=== PATIENT | female | born 1995 | race Caucasian/White ===

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

== ENCOUNTER 2017-01-29 11:17 | Observation (INO) | payer OTHER ==
[~2017-01-29] VITALS: Ht 167.6 cm; Wt 57.0 kg
[~2017-01-29 11:17] MED LIST: CNC/27 PO; LURA40TA PO; PRAZ1CAP28 PO; SERT-234 PO
[2017-01-29] MEDS ORDERED: ONDANSETRON INJ 2 MG/ML 2 ML VIAL ONE (11:56)
[2017-01-29 12:18] LABS: BASO % 0.1 %; BASO ABS # 0.01 K/uL (0-0.2); COMPLETE YES; EOS % 0.8 %; HEMATOCRIT 38.4 % (37-47); IG% 0.3 %; LYMPH % 13.2 %; LYMPH ABS # 1.22 K/uL (1.2-3.4); MEAN CELL VOLUME 84.2 fL (80-100); MEAN CORPUSCULAR HEMOGLOBIN 28.9 pg (25-34); MEAN CORPUSCULAR HGB CONC 34.4 g/dl (32-36); MEAN PLATELET VOLUME 9.8 fL (7.4-10.4); MONO % 13.6 %; PLATELET COUNT 265 K/uL (130-400); RED BLOOD COUNT 4.56 M/uL (4.2-5.4); WHITE BLOOD COUNT 9.26 K/uL (4.8-10.8)
[2017-01-29 12:19] LABS: URINE APPEARANCE CLEAR (CLEAR); URINE BILIRUBIN NEG (NEG); URINE COLOR DK YELLOW; URINE EPITHELIAL CELL AUTO >30 /lpf (0-5); URINE NITRITE NEG (NEG); URINE PH 5.5 (4.5-7.5); URINE SPECIFIC GRAVITY 1.026 (1.000-1.030); UROBILINOGEN NEG (NEG); ZZUR CULT IF INDIC CLEAN CATCH YES
[2017-01-29 12:21] LABS: MANUAL MICROSCOPIC REQUIRED? NO; REVIEW REQ? YES
[2017-01-29 12:31] LABS: INR 1.1 (0.9-1.1); PARTIAL THROMBOPLASTIN RATIO 1.2; PROTHROMBIN TIME (PATIENT) 11.3 SECONDS (9.0-12.0)
[2017-01-29 12:32] LABS: URINE MUCUS PRESENT (NONE PRSENT)
[2017-01-29 12:38] LABS: ALT/SGPT 23 U/L (12-78); AST/SGOT 16 U/L (15-37); BLOOD UREA NITROGEN 9 mg/dl (7-18); BUN/CREATININE RATIO 13.5 (10-20); CALCIUM 8.8 mg/dl (8.5-10.1); CARBON DIOXIDE 27 mmol/L (21-32); CHLORIDE 100 mmol/L (98-107); CREATININE 0.65 mg/dl (0.60-1.20); GLUCOSE 86 mg/dl (70-99); MAGNESIUM 2.2 mg/dl (1.8-2.4); POTASSIUM 3.1 mmol/L (3.5-5.1); SODIUM 135 mmol/L (136-145)
[2017-01-29 12:43] LABS: ALKALINE PHOSPHATASE 93 U/L (45-117)
--- NOTE | 2017-01-29 12:54 | EMERGENCY ROOM VISIT NOTE ---
History First contact with patient: 11:39 Chief Complaint: FLANK PAIN Stated Complaint: VOMITING, PAIN, MIGRAINE Nursing Triage Summary: pt to the ED from [facility] with a kidney infection that is not getting better pain on left flank/side area concern for pyelo see orange sheet History of Present Illness The patient is a 21 year old female who presents to the Emergency Room via private vehicle referred by [facility] with complaints of "vomiting, pain, migraine". The patient states that Wednesday she developed decreased appetite, and felt as though she was developing a headache. Mother then she developed excruciating left-sided abdominal pain. She did not eat much Wednesday, and was seen by [facility] on Wednesday. They obtained a urine specimen, and identify a urinary tract infection, likely pyelonephritis. She is put on ciprofloxacin at that time. She's been vomiting since that time, and also had Zofran this morning prior to arrival. She notes minimal pain, but does have a headache. She notes minimal vaginal discharge, but no pain. There is associated urinary frequency, and chills. Review of Systems A complete 10-point Review of Systems was discussed with the patient, with pertinent positives and negatives listed in the History of Present Illness. All remaining Review of Systems questions can be considered negative unless otherwise specified. Past Medical/Surgical History Medical Problems: (1) Pyelonephritis Family History Diabetes, heart disease, high blood pressure. Social History Smoking Status: Never Smoker Patient is currently a [employer] student. Current/Historical Medications Scheduled Lurasidone Hcl (Latuda), 40 MG PO DAILY Methylphenidate Hcl (Concerta), 27 MG PO QAM Prazosin Hcl (Prazosin), 1 MG PO HS Sertraline (Zoloft), 100 MG PO DAILY Physical Exam Vital Signs Date Time Temp Pulse Resp B/P (MAP) Pulse Ox O2 Delivery O2 Flow Rate FiO2 01/29/17 16:14 97 01/29/17 16:04 82 16 106/64 97 Room Air 01/29/17 14:40 88 16 115/73 99 Room Air 01/29/17 13:04 89 18 122/83 100 Room Air 01/29/17 12:14 93 01/29/17 12:08 99 Room Air 01/29/17 11:18 36.7 86 16 111/73 98 Physical Exam VITAL SIGNS - Vital signs and nursing notes were reviewed. Stable. GENERAL -21-year-old female appearing her stated age who is in no acute distress. Communicates well with provider and answers questions appropriately. SKIN - Without rashes. No petechial or meningeal rash. HEAD - NC/AT. EYES - Sclera anicteric. EARS - No deformities of external structures noted on gross examination bilaterally. NOSE - Midline and without cyanosis. No epistaxis or purulent drainage noted. Septum midline without deviation or septal hematoma noted. MOUTH/OROPHARYNX - Without perioral cyanosis. NECK - Neck with FROM. No meningismus. LUNGS - Chest wall symmetric without accessory muscle use, intercostals retractions, or central cyanosis. Normal vesicular breath sounds CTA B/L. No wheezes, rales, or rhonchi appreciated. CARDIAC - RRR with S1/S2. No murmur, rubs, or gallops appreciated. ABDOMEN - Abdominal contour without pulsations or visible masses. BS normoactive all four quadrants. Minimal left lower quadrant tenderness. No palpable masses, hepatosplenomegaly, or ascites noted. EXTREMITIES - No clubbing or peripheral cyanosis. No pretibial edema present. + 5/5 strength noted in UE/LE bilaterally. NEUROLOGIC - Cranial nerves II through XII grossly intact. PSYCH - A&O, and cooperates fully with examiner. Pt is very pleasant and interacts well with examiner. PELVIC EXAM: The patient's nurse was present to assist with exam, and lav[employer] worker. The patient was educated upon what her pelvic exam was, and she was offered to decline. Patient did not decline. I explained to her the pelvic exam. The patient was prepared and positioned for best examination. Patient was positioned by nurse. The external genitalia, mons pubis, labia majora, labia minora, clitoris, urethral meatus, Bartholin's glands, perineum, and anus were within normal limits. The speculum was held then a 45 angle and properly lubricated, the speculum was inserted without difficulty to the depth of the cervix. Speculum was then open slowly. Cervix was identified. The cervix was within normal limits and did not display any purulent discharge nor was erythematous. At this time 3 samples were taken of the white cottage cheese like discharge. These were cultured. The speculum was then closed and removed without difficulty. I then explained to the patient that I was in a perform a bimanual pelvic examination. I then introduced the index finger into the vaginal vault, palpated the cervix and cervical os and noted no abnormalities. The uterine body, apex and fundus were then palpated and were within normal limits, and position. The ovaries were then palpated with my left hand pressing over the lower quadrants of the abdomen and my right index finger pressing in the region of the ovary with no abnormal findings. Patient did not experience any discomfort. The exam was concluded, the nurse felt the patient back to her bed. Medical Decision & Procedures ER Provider Diagnostic Interpretation: ULTRASOUND KIDNEYS AND BLADDER CLINICAL HISTORY: Left-sided abdominal pain. Urinary frequency. COMPARISON STUDY: No priors. TECHNIQUE: Real-time, grayscale, and color flow sonography of the kidneys and bladder is performed. Images are reviewed in the transverse and longitudinal planes. FINDINGS: Kidneys: The kidneys are normal in size and echotexture. The right kidney measures 11.0 x 4.4 x 4.7 cm and the left kidney measures 11.7 x 5.6 x 5.0 cm. There is no hydronephrosis. No shadowing renal calculi are identified. There is no sonographic evidence of contour deforming renal mass lesion. No perinephric fluid is identified. Bladder: The bladder is normal in appearance. Ureteral jets were not seen. IMPRESSION: Unremarkable sonographic assessment of the kidneys and bladder. Electronically signed by: Juan Dsouza M.D. 01/29/2017 1:03 PM Dictated Date/Time: 01/29/2017 1:[address] SCAN OF THE ABDOMEN AND PELVIS WITHOUT IV CONTRAST CLINICAL HISTORY: Left-sided abdominal pain. Urinary tract infection. COMPARISON STUDY: Renal ultrasound dated 01/29/2017. TECHNIQUE: CT scan of the abdomen and pelvis is performed from the lung bases to the proximal femora. Images are reviewed in the axial, sagittal, and coronal planes. IV contrast was not administered for this examination as per the referring clinician. Note that the examination was performed in suboptimal fashion without oral and IV contrast. A dose lowering technique was utilized adhering to the principles of ALARA. CT DOSE: 618.32 mGycm FINDINGS: Lung bases: The heart is normal in size and without pericardial effusion. The lung bases are clear. Liver: The unenhanced liver is normal in size, contour, and attenuation. There is no intrahepatic biliary ductal dilatation. Gallbladder: Unremarkable. Spleen: Normal in size and attenuation. Pancreas: The unenhanced pancreas is grossly unremarkable. Adrenal glands: Unremarkable. Kidneys: The unenhanced kidneys are normal in size and without hydronephrosis. The left kidney appears slightly edematous and there is faint perinephric stranding. There is mild fullness of the left renal collecting system. Mild urothelial thickening is suggested in the left renal pelvis. There are no renal calculi identified. There is no evidence of contour deforming renal mass lesion. Abdominal vasculature: The abdominal aorta is normal in course and caliber. Bowel: The small bowel and colon are normal in course and caliber. The appendix is well-visualized and normal. Peritoneum: There is no intraperitoneal free air or abdominal ascites. There is a fat-containing umbilical hernia. A naval piercing is noted. Lymphadenopathy: None. Pelvic viscera: The bladder, uterus, and adnexa are normal as visualized. There are bilateral ovarian follicles. Skeletal structures: No lytic or blastic lesions are seen. IMPRESSION: 1. The left kidney appears mildly edematous and there is faint left-sided perinephric stranding. There is mild fullness of the left renal collecting system without evidence of hydronephrosis. No renal calculi are identified. Although this could represent the sequelae of a recently passed kidney stone, the appearance is more concerning for infection/pyelonephritis. Correlation with clinical findings and urinalysis will be required. 2. Additional findings as above. Electronically signed by: Juan Dsouza M.D. 01/29/2017 2:35 PM Dictated Date/Time: 01/29/2017 2:30 PM Laboratory Results 01/29/17 11:54 Red Blood Count 4.56, Mean Corpuscular Volume 84.2, Mean Corpuscular Hemoglobin 28.9, Mean Corpuscular Hemoglobin Concent 34.4, Mean Platelet Volume 9.8, Neutrophils (%) (Auto) 72.0, Lymphocytes (%) (Auto) 13.2, Monocytes (%) (Auto) 13.6, Eosinophils (%) (Auto) 0.8, Basophils (%) (Auto) 0.1, Neutrophils # (Auto ) 6.67, Lymphocytes # (Auto) 1.22, Monocytes # (Auto) 1.26, Eosinophils # (Auto ) 0.07, Basophils # (Auto) 0.01 01/29/17 11:54 Test 01/29/17 11:30 01/29/17 11:54 01/29/17 11:59 01/29/17 13:40 Urine Color DK YELLOW Urine Appearance CLEAR (CLEAR) Urine pH 5.5 (4.5-7.5) Urine Specific Dawn 1.026 (1.000-1.030) Urine Protein 2+ (NEG) Urine Glucose (UA) NEG (NEG) Urine Ketones TRACE (NEG) Urine Occult Blood TRACE (NEG) Urine Nitrite NEG (NEG) Urine Bilirubin NEG (NEG) Urine Urobilinogen NEG (NEG) Urine Leukocyte Esterase TRACE (NEG) Urine WBC (Auto) 10-30 /hpf (0-5) Urine RBC (Auto) 0-4 /hpf (0-4) Urine Hyaline Casts (Auto) 5-10 /lpf (0-5) Urine Epithelial Cells (Auto) >30 /lpf (0-5) Urine Bacteria (Auto) NEG (NEG) Urine Renal Epithelial Cells /lpf (0-5) Urine Pathogenic Casts /lpf (0) Urine Mucus PRESENT (NONE PRSENT) Urine Test NEG (NEG) White Blood Count 9.26 K/uL (4.8-10.8) Red Blood Count 4.56 M/uL (4.2-5.4) Hemoglobin 13.2 g/dL (12.0-16.0) Hematocrit 38.4 % (37-47) Mean Corpuscular Volume 84.2 fL (80-100) Mean Corpuscular Hemoglobin 28.9 pg (25-34) Mean Corpuscular Hemoglobin Concent 34.4 g/dl (32-36) Platelet Count 265 K/uL (130-400) Mean Platelet Volume 9.8 fL (7.4-10.4) Neutrophils (%) (Auto) 72.0 % Lymphocytes (%) (Auto) 13.2 % Monocytes (%) (Auto) 13.6 % Eosinophils (%) (Auto) 0.8 % Basophils (%) (Auto) 0.1 % Neutrophils # (Auto) 6.67 K/uL (1.4-6.5) Lymphocytes # (Auto) 1.22 K/uL (1.2-3.4) Monocytes # (Auto) 1.26 K/uL (0.11-0.59) Eosinophils # (Auto) 0.07 K/uL (0-0.5) Basophils # (Auto) 0.01 K/uL (0-0.2) RDW Standard Deviation 39.2 fL (36.4-46.3) RDW Coefficient of Variation 12.9 % (11.5-14.5) Immature Granulocyte % (Auto) 0.3 % Immature Granulocyte # (Auto) 0.03 K/uL (0.00-0.02) Prothrombin Time 11.3 SECONDS (9.0-12.0) Prothromb Time International Ratio 1.1 (0.9-1.1) Activated Partial Thromboplast Time 30.0 SECONDS (21.0-31.0) Partial Thromboplastin Ratio 1.2 Anion Gap 8.0 mmol/L (3-11) Est Creatinine Clear Calc Drug Dose 125.3 ml/min Estimated GFR () 149.2 Estimated GFR (Non- 128.7 BUN/Creatinine Ratio 13.5 (10-20) Calcium Level 8.8 mg/dl (8.5-10.1) Magnesium Level 2.2 mg/dl (1.8-2.4) Total Bilirubin 0.3 mg/dl (0.2-1) Aspartate Amino Transf (AST/SGOT) 16 U/L (15-37) Alanine Aminotransferase (ALT/SGPT) 23 U/L (12-78) Alkaline Phosphatase 93 U/L (45-117) Total Creatine Kinase 61 U/L (26-192) Creatine Kinase MB < 0.5 ng/ml (0.5-3.6) Creatine Kinase MB Ratio (0-3.0) Total Protein 7.9 gm/dl (6.4-8.2) Albumin 3.9 gm/dl (3.4-5.0) Globulin 4.0 gm/dl (2.5-4.0) Albumin/Globulin Ratio 1.0 (0.9-2) Lyme Disease IgG Antibody NEG (NEG) Lyme Disease IgM Antibody NEG (NEG) Lactic Acid Level 1.8 mmol/L (0.4-2.0) Date/Time Source Procedure Growth Status 01/29/17 13:40 Vaginal Drainage Trichomonas Preparation - Final Complete Medications Administered Medications (Trade) Dose Ordered Sig/Gus Route Start Time Stop Time Status Last Admin Dose Admin Ondansetron HCl (Zofran Inj) 4 mg STK-MED ONCE .ROUTE 01/29/17 11:56 01/29/17 11:57 DC 01/29/17 12:02 4 MG Promethazine HCl 12.5 mg/Sodium Chloride 50.5 ml @ 204 mls/hr NOW STAT IV 01/29/17 15:05 01/29/17 15:19 DC 01/29/17 15:18 204 MLS/HR Ceftriaxone Sodium (Rocephin Inj) 1 gm NOW STAT IV 01/29/17 15:05 01/29/17 15:06 DC 01/29/17 16:05 1 GM Sodium Chloride 1,000 ml @ 999 mls/hr Q1H1M STAT IV 01/29/17 15:15 01/29/17 16:15 DC 01/29/17 13:15 999 MLS/HR Sodium Chloride 1,000 ml @ 200 mls/hr Q5H STAT IV 01/29/17 15:15 01/29/17 20:14 01/29/17 15:18 200 MLS/HR Acetaminophen (Tylenol Tab) 500 mg NOW STAT PO 01/29/17 17:09 01/29/17 17:10 DC 01/29/17 17:34 500 MG Medical Decision Patient was seen and evaluated as above. She presents to us today with left- sided abdominal pain, decreased appetite nausea, vomiting and concern over pyelonephritis. IV access was initiated, and the above workup was performed. She was given 1 L of normal saline. Urine is concerning for infection. There is no concern of leukocytosis or anemia. Metabolic panel reveals no evidence of kidney or liver failure. Ultrasound is inconclusive. Decision was then made to obtain a CT scan without contrast of the patient's abdomen and pelvis. Benefits versus risk was discussed. This reveals concern for pyelonephritis. She is given 1 g of Rocephin IV. She is reevaluated and still feeling nauseous despite the 4 mg of Zofran she was given here. She also had Zofran prior to arrival. She was given 12.5 mg of intravenous Phenergan. She was reevaluated and feeling better. By mouth fluid trial was initiated, and she had decreased appetite and unable tolerate this. She then began vomiting. The case was discussed with the attending physician, and subsequent the hospitalist. There was a pelvic exam performed after discussing benefits as his risk as well as with this involved. Patient consented. Nurse Iris was in the room throughout the entire examination. There was white cottage cheese like discharge, otherwise negative. Please refer to further documentation regarding her stay. In evaluation treatment this patient the following differential diagnoses were entertained: Pyelonephritis, UTI, intra-abdominal etiology, STI, among others. Impression Primary Impression: Left flank pain Additional Impressions: Urinary tract infection Pyelonephritis Departure Information Referrals [facility] (PCP) Patient Instructions My [facility] Problem Qualifiers
--- NOTE | 2017-01-29 13:04 | DIAGNOSTIC IMAGING REPORT ---
ULTRASOUND KIDNEYS AND BLADDER CLINICAL HISTORY: Left-sided abdominal pain. Urinary frequency. COMPARISON STUDY: No priors. TECHNIQUE: Real-time, grayscale, and color flow sonography of the kidneys and bladder is performed. Images are reviewed in the transverse and longitudinal planes. FINDINGS: Kidneys: The kidneys are normal in size and echotexture. The right kidney measures 11.0 x 4.4 x 4.7 cm and the left kidney measures 11.7 x 5.6 x 5.0 cm. There is no hydronephrosis. No shadowing renal calculi are identified. There is no sonographic evidence of contour deforming renal mass lesion. No perinephric fluid is identified. Bladder: The bladder is normal in appearance. Ureteral jets were not seen. IMPRESSION: Unremarkable sonographic assessment of the kidneys and bladder. Electronically signed by: Juan Dsouza M.D. 01/29/2017 1:03 PM Dictated Date/Time: 01/29/2017 1:01 PM
[2017-01-29 13:17] LABS: LYME DISEASE AB IGG NEG (NEG); LYME DISEASE AB IGM NEG (NEG)
--- NOTE | 2017-01-29 14:36 | DIAGNOSTIC IMAGING REPORT ---
CT SCAN OF THE ABDOMEN AND PELVIS WITHOUT IV CONTRAST CLINICAL HISTORY: Left-sided abdominal pain. Urinary tract infection. COMPARISON STUDY: Renal ultrasound dated 01/29/2017. TECHNIQUE: CT scan of the abdomen and pelvis is performed from the lung bases to the proximal femora. Images are reviewed in the axial, sagittal, and coronal planes. IV contrast was not administered for this examination as per the referring clinician. Note that the examination was performed in suboptimal fashion without oral and IV contrast. A dose lowering technique was utilized adhering to the principles of ALARA. CT DOSE: 618.32 mGycm FINDINGS: Lung bases: The heart is normal in size and without pericardial effusion. The lung bases are clear. Liver: The unenhanced liver is normal in size, contour, and attenuation. There is no intrahepatic biliary ductal dilatation. Gallbladder: Unremarkable. Spleen: Normal in size and attenuation. Pancreas: The unenhanced pancreas is grossly unremarkable. Adrenal glands: Unremarkable. Kidneys: The unenhanced kidneys are normal in size and without hydronephrosis. The left kidney appears slightly edematous and there is faint perinephric stranding. There is mild fullness of the left renal collecting system. Mild urothelial thickening is suggested in the left renal pelvis. There are no renal calculi identified. There is no evidence of contour deforming renal mass lesion. Abdominal vasculature: The abdominal aorta is normal in course and caliber. Bowel: The small bowel and colon are normal in course and caliber. The appendix is well-visualized and normal. Peritoneum: There is no intraperitoneal free air or abdominal ascites. There is a fat-containing umbilical hernia. A naval piercing is noted. Lymphadenopathy: None. Pelvic viscera: The bladder, uterus, and adnexa are normal as visualized. There are bilateral ovarian follicles. Skeletal structures: No lytic or blastic lesions are seen. IMPRESSION: 1. The left kidney appears mildly edematous and there is faint left-sided perinephric stranding. There is mild fullness of the left renal collecting system without evidence of hydronephrosis. No renal calculi are identified. Although this could represent the sequelae of a recently passed kidney stone, the appearance is more concerning for infection/pyelonephritis. Correlation with clinical findings and urinalysis will be required. 2. Additional findings as above. Electronically signed by: Juan Dsouza M.D. 01/29/2017 2:35 PM Dictated Date/Time: 01/29/2017 2:30 PM
[2017-01-29] MEDS ORDERED: CEFTRIAXONE SOD INJ 1 GM ADDVIAL IV STA (15:05)
[2017-01-29] MEDS ORDERED: PROMETHAZINE HCL INJ 12.5 MG in SODIUM CHLORIDE 0.9% 50ML 50 ML IV STA (15:05)
[2017-01-29] MEDS ORDERED: SODIUM CHLORIDE 0.9% 1000ML 1,000 ML IV STA ×2 (15:15)
[2017-01-29] MEDS ORDERED: ACETAMINOPHEN 500 MG TAB PO STA (17:09)
[2017-01-29] MEDS ORDERED: PROMETHAZINE HCL INJ 12.5 MG in SODIUM CHLORIDE 0.9% 50ML 50 ML IV PRN (17:30)
[2017-01-29] MEDS ORDERED: ONDANSETRON INJ 2 MG/ML 2 ML VIAL IV PRN (17:30)
[2017-01-29] MEDS ORDERED: ACETAMINOPHEN 325 MG TAB PO PRN (17:30)
[2017-01-29] MEDS ORDERED: IV FLUIDS COMPLETED PRN (17:30)
--- NOTE | 2017-01-29 17:35 | History and Physical ---
History & Physical Date & Time of Service: Jan 29, 2017 at 17:28 Chief Complaint: Vomiting, Pain, Migraine Primary Care Physician: [facility] History of Present Illness Source: patient Pt is a 21 yo female with hx of depression who presents to ER with dizziness, intractable N/V for past few days. Pt presented to [facility] and was diagnosed with UTI and placed on cipro. Pt reported worsening nausea dizziness. In ER pt noted to have pyelonephritis per CT abd/pelvis. Pt denies fevers but reports chills. He currently denies and flank/abd pain. Social History Smoking Status: Never Smoker Smokeless Tobacco Use: No Alcohol Use: socially Drug Use: marijuana Allergies Coded Allergies: No Known Allergies (Unverified , 01/29/17) Home Medications Scheduled Lurasidone Hcl (Latuda), 40 MG PO DAILY Methylphenidate Hcl (Concerta), 27 MG PO QAM Prazosin Hcl (Prazosin), 1 MG PO HS Sertraline (Zoloft), 100 MG PO DAILY Review of Systems Constitutional: + chills, + weakness, No fever, No sweats Eyes: No worsening of vision, No eye pain, No redness, No discharge Respiratory: No cough, No sputum, No wheezing, No shortness of breath, No dyspnea on exertion Cardiovascular: No chest pain, No orthopnea, No PND, No edema Abdomen: No pain, No nausea, No vomiting, No diarrhea Musculoskeletal: No joint pain, No muscle pain, No swelling, No calf pain Genitourinary - Female: No dysuria, No urinary frequency, No urinary urgency, No urinary incontinence Neurologic: No memory loss, No paralysis, No weakness, No numbness/tingling Psychiatric: No depression symptoms, No anhedonism, No anxiety, No insomnia Integumentary: No rash, No itch Physical Exam Vital Signs Date Time Temp Pulse Resp B/P (MAP) Pulse Ox O2 Delivery O2 Flow Rate FiO2 01/29/17 16:14 97 01/29/17 16:04 82 16 106/64 97 Room Air 01/29/17 14:40 88 16 115/73 99 Room Air 01/29/17 13:04 89 18 122/83 100 Room Air 01/29/17 12:14 93 01/29/17 12:08 99 Room Air 01/29/17 11:18 36.7 86 16 111/73 98 General Appearance: WD/WN, no apparent distress Eyes: normal inspection, PERRL, EOMI, sclerae normal ENT: normal ENT inspection, hearing grossly normal, TMs normal, pharynx normal Neck: supple, no adenopathy, thyroid normal, no JVD Respiratory/Chest: chest non-tender, lungs clear, normal breath sounds, no respiratory distress Cardiovascular: no edema, no gallop, no JVD, no murmur Abdomen/GI: normal bowel sounds, non tender, soft, no organomegaly Back: normal inspection, no CVA tenderness, no muscle spasm Neurologic/Psych: no motor/sensory deficits, alert, normal mood/affect, normal reflexes Skin: normal color, warm/dry, no rash Lymphatic: no adenopathy Diagnostics Laboratory Results Results Past 24 Hours Test 01/29/17 11:30 01/29/17 11:54 01/29/17 11:59 01/29/17 13:40 Range/Units Urine Color DK YELLOW Urine Appearance CLEAR CLEAR Urine pH 5.5 4.5-7.5 Urine Specific [place] 1.026 1.000-1.030 Urine Protein 2+ NEG Urine Glucose (UA) NEG NEG Urine Ketones TRACE NEG Urine Occult Blood TRACE NEG Urine Nitrite NEG NEG Urine Bilirubin NEG NEG Urine Urobilinogen NEG NEG Urine Leukocyte Esterase TRACE NEG Urine WBC (Auto) 10-30 0-5 /hpf Urine RBC (Auto) 0-4 0-4 /hpf Urine Hyaline Casts (Auto) 5-10 0-5 /lpf Urine Epithelial Cells (Auto) >30 0-5 /lpf Urine Bacteria (Auto) NEG NEG Urine Renal Epithelial Cells 0-5 /lpf Urine Pathogenic Casts 0 /lpf Urine Mucus PRESENT NONE PRSENT Urine Test NEG NEG White Blood Count 9.26 4.8-10.8 K/uL Red Blood Count 4.56 4.2-5.4 M/uL Hemoglobin 13.2 12.0-16.0 g/dL Hematocrit 38.4 37-47 % Mean Corpuscular Volume 84.2 80-100 fL Mean Corpuscular Hemoglobin 28.9 25-34 pg Mean Corpuscular Hemoglobin Concent 34.4 32-36 g/dl Platelet Count 265 130-400 K/uL Mean Platelet Volume 9.8 7.4-10.4 fL Neutrophils (%) (Auto) 72.0 % Lymphocytes (%) (Auto) 13.2 % Monocytes (%) (Auto) 13.6 % Eosinophils (%) (Auto) 0.8 % Basophils (%) (Auto) 0.1 % Neutrophils # (Auto) 6.67 1.4-6.5 K/uL Lymphocytes # (Auto) 1.22 1.2-3.4 K/uL Monocytes # (Auto) 1.26 0.11-0.59 K/uL Eosinophils # (Auto) 0.07 0-0.5 K/uL Basophils # (Auto) 0.01 0-0.2 K/uL RDW Standard Deviation 39.2 36.4-46.3 fL RDW Coefficient of Variation 12.9 11.5-14.5 % Immature Granulocyte % (Auto) 0.3 % Immature Granulocyte # (Auto) 0.03 0.00-0.02 K/uL Prothrombin Time 11.3 9.0-12.0 SECONDS Prothromb Time International Ratio 1.1 0.9-1.1 Activated Partial Thromboplast Time 30.0 21.0-31.0 SECONDS Partial Thromboplastin Ratio 1.2 Sodium Level 135 136-145 mmol/L Potassium Level 3.1 3.5-5.1 mmol/L Chloride Level 100 98-107 mmol/L Carbon Dioxide Level 27 21-32 mmol/L Anion Gap 8.0 3-11 mmol/L Blood Urea Nitrogen 9 7-18 mg/dl Creatinine 0.65 0.60-1.20 mg/dl Est Creatinine Clear Calc Drug Dose 125.3 ml/min Estimated GFR () 149.2 Estimated GFR (Non- 128.7 BUN/Creatinine Ratio 13.5 10-20 Random Glucose 86 70-99 mg/dl Calcium Level 8.8 8.5-10.1 mg/dl Magnesium Level 2.2 1.8-2.4 mg/dl Total Bilirubin 0.3 0.2-1 mg/dl Aspartate Amino Transf (AST/SGOT) 16 15-37 U/L Alanine Aminotransferase (ALT/SGPT) 23 12-78 U/L Alkaline Phosphatase 93 45-117 U/L Total Creatine Kinase 61 26-192 U/L Creatine Kinase MB < 0.5 0.5-3.6 ng/ml Creatine Kinase MB Ratio 0-3.0 Total Protein 7.9 6.4-8.2 gm/dl Albumin 3.9 3.4-5.0 gm/dl Globulin 4.0 2.5-4.0 gm/dl Albumin/Globulin Ratio 1.0 0.9-2 Lyme Disease IgG Antibody NEG NEG Lyme Disease IgM Antibody NEG NEG Lactic Acid Level 1.8 0.4-2.0 mmol/L Microbiology Results 01/29/17 Trichomonas Preparation - Final, Complete 01/29/17 Gram Stain, Received Pending 01/29/17 Genital Culture, Received Pending 01/29/17 Urine Culture, Received Pending Impression Assessment and Plan Pt is a 21 yo female with recently diagnosed UTI, placed on cipro by [facility] 3 days ago reports to ER with worsening nausea/vomiting Nausea/vomiting likely related to pyelonephritis. Can continue cipro at this time as no leukocytosis or fevers. Will likely need 14 day course. Zofran and phenergan PRN pain. Cont NS IVF. Urine cx pending. Yeast infection - Fluconazole IV, can switch to cream formulation tomorrow. Depression, stable, cont home meds, follows up with a psychiatrist in [place] VTE Prophylaxis VTE Risk Assessment Done? Y/N: Yes Risk Level: Moderate
[2017-01-29] MEDS: SODIUM CHLORIDE 0.9% 1000ML 1,000 ML IV SCH (18:29)
[2017-01-29] MEDS ORDERED: FLUCONAZOLE / NSS 200 MG in PREMIXED NSS 100 ML IV SCH (18:30)
[2017-01-29 18:37] VITALS: BP 122/74; TEMP 36.7; O2SAT 98; Ht 167.6 cm; Wt 57.0 kg
[2017-01-29] MEDS: CIPROFLOXACIN / D5W 400 MG in PREMIXED IN D5W 200 ML IV SCH (20:38)
[2017-01-29] MEDS ORDERED: PRAZOSIN HCL 1 MG CAP PO SCH (21:00)
[2017-01-29] MEDS ORDERED: LURASIDONE HCL 40 MG TAB PO SCH (21:00)
[2017-01-30] VITALS: O2SAT 98
[2017-01-30 00:24] VITALS: BP 104/70; PULSE 84; TEMP 36.9; O2SAT 96
[2017-01-30] MEDS: SODIUM CHLORIDE 0.9% 1000ML 1,000 ML IV SCH (05:03)
[2017-01-30 08:00] VITALS: BP 104/64; PULSE 76; TEMP 36.9; O2SAT 97
[2017-01-30] MEDS ORDERED: LURASIDONE HCL 40 MG TAB PO SCH (08:00)
[2017-01-30] MEDS ORDERED: SERTRALINE HCL 100 MG TAB PO SCH (08:00)
[2017-01-30 08:30] VITALS: BP 104/64; PULSE 76; TEMP 36.9; O2SAT 97
[2017-01-30] MEDS: CIPROFLOXACIN / D5W 400 MG in PREMIXED IN D5W 200 ML IV SCH (08:33)
[2017-01-30 11:40] LABS: BUN/CREATININE RATIO 8.6 (10-20); CALCIUM 8.8 mg/dl (8.5-10.1); CARBON DIOXIDE 22 mmol/L (21-32); CHLORIDE 106 mmol/L (98-107); CREATININE 0.44 mg/dl (0.60-1.20); GLUCOSE 69 mg/dl (70-99); POTASSIUM 3.5 mmol/L (3.5-5.1); SODIUM 137 mmol/L (136-145)
[2017-01-30 12:23] LABS: BLOOD UREA NITROGEN 4 mg/dl (7-18)
[2017-01-30] MEDS ORDERED: CPR500 PO (12:39)
--- NOTE | 2017-01-30 12:40 | Discharge Instructions ---
Discharge Instructions Date of Service Jan 30, 2017. Admission Reason for Admission: Dizziness,Pyelonephritis Discharge Discharge Diagnosis / Problem: pyelonephritis Discharge Goals Goal(s): Diagnostic testing, Therapeutic intervention Activity Recommendations Activity Limitations: resume your previous activity . Current Hospital Diet Patient's current hospital diet: Discharge Diet Recommended Diet: Regular Diet Pending Studies Studies pending at discharge: yes List of pending studies: final urine culture results Medical Emergencies . Who to Call and When: Medical Emergencies: If at any time you feel your situation is an emergency, please call 911 immediately. . Non-Emergent Contact Non-Emergency issues call your: Primary Care Provider Call Non-Emergent contact if: temperature is above 101, your pain is unusual for you . . "Provider Documentation" section prepared by Amish Matthews. . VTE Core Measure Inpt VTE Proph given/why not?: Treatment not indicated
[2017-01-30 13:46] VITALS: BP 104/64; PULSE 76; TEMP 36.9; O2SAT 97
--- NOTE | 2017-01-30 15:57 | Discharge Summary ---
Discharge Summary Date of Service Jan 30, 2017. Discharge Summary Admission Date: Jan 29, 2017 at 17:23 Discharge Date: Jan 30, 2017 Principal Diagnosis: pyelonephritis, negative cultures Medication Reconciliation New Medications: Ciprofloxacin (Ciprofloxacin HCl) 500 Mg Tab 500 MG PO BID, #14 DOSE Continued Medications: Lurasidone Hcl (Latuda) 40 Mg Tab 40 MG PO DAILY, TAB Methylphenidate Hcl (Concerta) 27 Mg Tab 27 MG PO QAM, TAB Prazosin Hcl (Prazosin) 1 Mg Cap 1 MG PO HS, CAP Sertraline (Zoloft) 100 Mg Tab 100 MG PO DAILY, TAB Discharge Exam Review of Systems: Constitutional: No fever, No chills, No sweats Respiratory: No cough, No sputum Cardiovascular: No chest pain, No orthopnea Abdomen: No pain, No nausea Physical Exam: General Appearance: WD/WN, no apparent distress Neck: supple, no JVD Respiratory/Chest: chest non-tender, lungs clear, normal breath sounds Cardiovascular: regular rate, rhythm, no murmur Abdomen / GI: normal bowel sounds, non tender, soft Extremities: no pedal edema, normal range of motion Hospital Course Pt is a 21 yo female with recently diagnosed UTI, placed on cipro by [facility] 3 days ago reports to ER with worsening nausea/vomiting Nausea/vomiting likely related to pyelonephritis. Can continue cipro will be discharged to home as tolerating po well, she had 3 days pre hospital will have additional 7 for a 10 day course Yeast infection - switch to creamotc on discharge Depression, stable, cont home meds, follows up with a psychiatrist in [place] Total Time Spent: Greater than 30 minutes This includes examination of the patient, discharge planning, medication reconciliation, and communication with other providers. Discharge Instructions Please refer to the electronic Patient Visit Report (Discharge Instructions) for additional information.
[2017-02-01 10:12] LABS: CHLAMYDIA TRACH RNA*** NOT DETECTED (NOT DETECTED); GC (NEIS GONORRHOEAE)RNA** NOT DETECTED (NOT DETECTED)
== END 2017-01-30 14:00 | disposition home or self-care (01) ==
LOC: C.EDB 11:18 → C.4E 17:23 → ENRESERV 17:45
PROVIDERS: ADMIT Hospitalist; ATTEND Hospitalist
DX: N12 Tubulo-interstitial nephritis, not specified as acute or chronic (principal); R11.2 Nausea with vomiting, unspecified; B37.49 Other urogenital candidiasis; F32.9 Major depressive disorder, single episode, unspecified; Z79.899 Other long term (current) drug therapy